=== PATIENT | female | born 1950 | race Caucasian/White ===

== ENCOUNTER 2016-11-02 14:07 | Emergency (ER) | payer OTHER ==
--- NOTE | 2016-11-02 14:13 | PDOC ---
Rapid Medical Evaluation Chief Complaint: Pain Time Seen by Provider: 11/02/16 14:10 Medical Evaluation: Allergies Allergy/AdvReac Type Severity Reaction Status Date / Time No Known Allergies Allergy Verified 10/18/13 15:00 11/02/16 14:10 66 yo F c/o constipation x4d. Pt feels the sensation of BM with lower abd discomfort but has been unsuccessful. +h/o constipation Neg n/v/f/c H/O diverticulitis. Had colonoscopy this year; wnl
[2016-11-02 14:14] VITALS: BP 132/71; PULSE 91; TEMP 98.2; BMI 30.1
--- NOTE | 2016-11-02 14:34 | PDOC ---
History of Present Illness - General Chief Complaint: Pain Stated Complaint: ABD PAIN Time Seen by Provider: 11/02/16 14:10 History Source: Patient Exam Limitations: No Limitations - History of Present Illness Initial Comments: CHIEF COMPLAINT: 66 y/o afebrile female with PMH constipation and diverticulitis c/o constipation and lower abd pain. HISTORY OF PRESENT ILLNESS: The patient states that she has had very small bowel movements over the past 2 days and lower abdominal pain for the past 24 hours. She took miralax last night with little relief. She denies f/c, n/v/d, CP, SOB, back pain, hematuria, dysuria. Vital signs on arrival are within normal limits. REVIEW OF SYSTEMS: GENERAL/CONSTITUTIONAL: No fever/chills. No weakness. No weight change. HEAD, EYES, EARS, NOSE AND THROAT: No change in vision. No ear pain or discharge. No sore throat. CARDIOVASCULAR: No chest pain or shortness of breath. RESPIRATORY: No cough, wheezing, or hemoptysis. GASTROINTESTINAL: +abd pain and constipation. No nausea, vomiting, diarrhea. GENITOURINARY: No dysuria, frequency, or change in urination. MUSCULOSKELETAL: No joint or muscle swelling or pain. No neck or back pain. SKIN: No rash or easy bruising. NEUROLOGIC: No headache, vertigo, loss of consciousness, or loss of sensation. PHYSICAL EXAM: GENERAL: The patient is awake, alert, and fully oriented, in no acute distress. She is well appearing and ambulatory. HEAD: Normal with no signs of trauma. ENT: Pupils equal, round and reactive to light, extraocular movements intact, sclera anicteric, conjunctiva clear. Neck supple. LUNGS: Clear to auscultation bilaterally. Normal excursion. No respiratory distress or use of accessory muscles. CV: RRR, S1/S2, no MRG. Cap refill < 2 sec. ABDOMEN: Soft, non-distended, TTP of suprapubic and LLQ. No rebound, guarding or rigidity. EXTREMITIES: Normal range of motion, no edema. NEUROLOGICAL: Normal speech, normal gait. CN II-XII grossly intact. PSYCH: Normal mood, normal affect. SKIN: Warm, dry, normal turgor, no rashes or lesions noted. Past History - Past Medical History Allergies/Adverse Reactions: Allergies Allergy/AdvReac Type Severity Reaction Status Date / Time No Known Allergies Allergy Verified 10/18/13 15:00 Home Medications: Ambulatory Orders Polyethylene Glycol 3350 [Gavilax] 17 gm PO ASDIR 11/02/16 Asthma: Yes GI Disorders: Yes (HX of diverticulitis) Hypercholesterolemia: Yes - Psycho/Social/Smoking Cessation Hx Anxiety: No Suicidal Ideation: No Smoking Status: No Smoking History: Never smoked Have you smoked in the past 12 months: No Number of Cigarettes Smoked Daily: 0 Information on smoking cessation initiated: No Hx Alcohol Use: No Drug/Substance Use Hx: No Substance Use Type: None *Physical Exam - Vital Signs Last Vital Signs Temp Pulse Resp BP Pulse Ox 98.2 F 91 H 17 132/71 97 11/02/16 14:11 11/02/16 14:11 11/02/16 14:11 11/02/16 14:11 11/02/16 14:11 Medical Decision Making - Medical Decision Making A/P: 66 y/o afebrile female with constipation and lower abdominal pain for the past 2 days. Plan is as follows: 1. flat and upright abd xray 2. UA/culture 3. Mag citrate Flat and upright abd xray IMPRESSION: No evidence of pneumoperitoneum. No evidence of distended loops of small bowel or colon. Few small nonspecific air-fluid levels are seen on the erect view. The patient was able to have a normal BM in the ER about 1 hour after having Mag Citrate. She states she feels better and wants to go home. Suggested she drink plenty of fluids, take her constipation medication if needed and f/u with her PCP as soon as possible. instructed her to return to the ER with any worsening or concerning symptoms. The patient verbalizes understanding of all instructions, has no further questions and is awaiting discharge. *DC/Admit/Observation/Transfer Diagnosis at time of Disposition: Constipation Qualifiers: Constipation type: unspecified constipation type Qualified Code(s): K59.00 - Constipation, unspecified - Discharge Dispostion Disposition: HOME Condition at time of disposition: Improved - Referrals Referrals: Rose Marie Blum [Primary Care Provider] - Call tomorrow - Patient Instructions Printed Discharge Instructions: DI for Constipation, Increased Dietary Fiber May Improve Constipation Conditions With Pelvic Sunny Additional Instructions: Discharge Instructions: -Take your constipation medication if needed -Drink plenty of fluids -Follow up with your doctor as soon as possible -return to the ER with any worsening or concerning symptoms
[2016-11-02] MEDS ORDERED: MAGNESIUM CITRATE 300 ML BOTTLE PO ONE (14:36)
[2016-11-02] MEDS ORDERED: MAGNESIUM CITRATE 300 ML BOTTLE ONE ×2 (14:45→14:56)
[2016-11-02 15:33] LABS: URINE APPEARANCE CLEAR; URINE BILIRUBIN NEGATIVE (NEGATIVE); URINE COLOR AMBER; URINE GLUCOSE (UA) NEGATIVE (NEGATIVE); URINE KETONE NEGATIVE (NEGATIVE); URINE NITRITE NEGATIVE (NEGATIVE); URINE UROBILINOGEN NEGATIVE E.U./dl (0.2-1.0)
[2016-11-02 15:36] LABS: URINE BLOOD 2+ (NEGATIVE); URINE LEUK ESTERASE TRACE (NEGATIVE); URINE PROTEIN 1+ (NEGATIVE)
[2016-11-02 15:38] LABS: URINE MUCUS MANY; URINE RBC 17 /hpf (0-3); URINE WBC 6 /hpf (3-5)
== END 2016-11-02 15:53 | disposition home or self-care (01) ==
LOC: JERFT 14:07
DX: K59.00 Constipation, unspecified (principal); K57.90 Diverticulosis of intestine, part unspecified, without perforation or abscess without bleeding; J45.909 Unspecified asthma, uncomplicated; E78.00 Pure hypercholesterolemia, unspecified
CPT/HCPCS: 74020-TC; 81003; 81015; 87086; 99281-25

== ENCOUNTER 2023-06-05 03:46 | Day surgery (SDC) | payer OTHER ==
[2023-06-02 09:36] VITALS: BMI 28.0
[2023-06-05] MEDS ORDERED: MIDAZOLAM HCL 2 MG/2 ML SINGLE DOSE VIAL ONE (08:15)
[2023-06-05 09:16] VITALS: RESP 18
[2023-06-05 10:24] VITALS: BP 132/61; PULSE 70; TEMP 97.5
== END 2023-06-05 10:20 | disposition home or self-care (01) ==
LOC: JASU-SURG 03:46
PROVIDERS: ATTEND Urology
PROC: 0TF3XZZ Fragmentation in Right Kidney Pelvis, External Approach (ICD-10-PCS; principal; 2023-06-05 08:30)
DX: N20.0 Calculus of kidney (principal)

== ENCOUNTER 2024-02-09 22:45 | Observation (INO) | payer OTHER ==
[2024-02-09 22:53] VITALS: BMI 21.8
[2024-02-09 23:28] LABS: EOS % 3.5 % (0-4.5); HEMATOCRIT 36.1 % (32.4-45.2); HEMOGLOBIN 12.2 GM/dL (10.7-15.3); LYMPH % 46.3 % (8-40); MCH 30.9 pg (25.7-33.7); MCHC 33.8 g/dl (32.0-36.0); MEAN CELL VOLUME 91.6 fl (80-96); MEAN PLT VOLUME 7.1 fl (7.5-11.1); MONO % 7.8 % (3.8-10.2); NEUT % 41.4 % (42.8-82.8); PLATELET COUNT 232 10^3/uL (134-434); RBC 3.94 M/mm3 (3.60-5.2); WHITE BLOOD COUNT 4.4 K/mm3 (4.0-10.0)
[2024-02-09 23:40] LABS: INR 1.02 (0.83-1.09); PROTHROMBIN TIME (PATIENT) 11.5 SEC (9.7-13.0)
[2024-02-09 23:44] LABS: POTASSIUM 3.9 mmol/L (3.5-5.1)
[2024-02-09 23:46] LABS: CALCIUM 8.8 mg/dL (8.5-10.1)
[2024-02-09 23:47] LABS: ALBUMIN 3.5 g/dl (3.4-5.0); BLOOD UREA NITROGEN 13.2 mg/dL (7-18); MAGNESIUM 2.1 mg/dL (1.8-2.4)
[2024-02-09 23:50] LABS: CREATININE 0.7 mg/dL (0.55-1.3)
[2024-02-09 23:52] LABS: BILIRUBIN,TOTAL 0.4 mg/dL (0.2-1); TOT PROT 6.5 g/dl (6.4-8.2)
[2024-02-10] MEDS ORDERED: ACETAMINOPHEN INJECTION 100 ML IVPB ONE (00:05)
[2024-02-10] MEDS ORDERED: FAMOTIDINE 20 MG/50 ML IVPB 20 MG/50 ML MG IVPB ONE (00:06)
[2024-02-10] MEDS: FAMOTIDINE 20 MG/50 ML IVPB 20 MG/50 ML MG IVPB ONE (00:11)
[2024-02-10] MEDS: ACETAMINOPHEN 1000 MG/100 ML BAG IVPB ONE (00:11)
[2024-02-10] MEDS ORDERED: ASPIRIN 325 MG ENTERIC COATED TABLET (FP) ONE (01:49)
[2024-02-10] MEDS: ASPIRIN 325 MG ENTERIC COATED TABLET (FP) PO ONE (01:51)
[2024-02-10] MEDS ORDERED: ALBUTEROL SO4 HFA INHALER IH PRN (04:35)
[2024-02-10 08:40] LABS: HEMATOCRIT 35.8 % (32.4-45.2); HEMOGLOBIN 12.3 GM/dL (10.7-15.3); MCH 31.4 pg (25.7-33.7); MCHC 34.4 g/dl (32.0-36.0); MEAN CELL VOLUME 91.2 fl (80-96); MEAN PLT VOLUME 7.7 fl (7.5-11.1); PLATELET COUNT 224 10^3/uL (134-434); RBC 3.93 M/mm3 (3.60-5.2); RDW 13.1 % (11.6-15.6)
[2024-02-10 08:58] LABS: POTASSIUM 4.1 mmol/L (3.5-5.1)
[2024-02-10 09:14] LABS: CALCIUM 9.2 mg/dL (8.5-10.1)
[2024-02-10 09:15] LABS: BLOOD UREA NITROGEN 9.7 mg/dL (7-18); MAGNESIUM 2.2 mg/dL (1.8-2.4)
[2024-02-10 09:17] LABS: PHOSPHOROUS 3.8 mg/dL (2.5-4.9)
[2024-02-10 09:18] LABS: CREATININE 0.6 mg/dL (0.55-1.3)
[2024-02-10] MEDS: LIDOCAINE 5% TOPICAL PATCH TP SCH (09:46)
[2024-02-10] MEDS: BUDESONIDE/FORMOTEROL FUMARATE 80-4.5 MCG (10.3 GM INHALER) IH SCH (09:46)
[2024-02-10] MEDS: ENOXAPARIN NA (PORCINE) 40 MG/0.4 ML DISP.SYRIN SQ SCH (09:46)
[2024-02-10] MEDS: ASPIRIN COATED 81 MG TABLET.EC PO SCH (09:47)
[2024-02-10] MEDS: PANTOPRAZOLE 20 MG TABLET PO SCH (09:47)
[2024-02-10] MEDS: LIDOCAINE PATCH REMOVAL MC SCH (20:20)
[2024-02-10] MEDS: MONTELUKAST NA 10 MG TABLET PO SCH (21:41)
[2024-02-10] MEDS: ROSUVASTATIN CA 20 MG TABLET PO SCH (21:41)
[2024-02-11 07:58] LABS: POTASSIUM 4.1 mmol/L (3.5-5.1)
[2024-02-11 08:05] LABS: BLOOD UREA NITROGEN 12.3 mg/dL (7-18); CALCIUM 9.1 mg/dL (8.5-10.1)
[2024-02-11 08:09] LABS: CREATININE 0.6 mg/dL (0.55-1.3)
[2024-02-11 08:32] LABS: HEMATOCRIT 35.8 % (32.4-45.2); HEMOGLOBIN 12.4 GM/dL (10.7-15.3); MCH 31.5 pg (25.7-33.7); MCHC 34.5 g/dl (32.0-36.0); MEAN CELL VOLUME 91.3 fl (80-96); MEAN PLT VOLUME 7.8 fl (7.5-11.1); PLATELET COUNT 240 10^3/uL (134-434); RBC 3.92 M/mm3 (3.60-5.2); RDW 13.1 % (11.6-15.6); WHITE BLOOD COUNT 4.3 K/mm3 (4.0-10.0)
[2024-02-11 19:15] VITALS: RESP 18
[2024-02-12 09:01] LABS: HEMATOCRIT 39.4 % (32.4-45.2); HEMOGLOBIN 13.5 GM/dL (10.7-15.3); MCH 31.6 pg (25.7-33.7); MCHC 34.3 g/dl (32.0-36.0); MEAN CELL VOLUME 92.3 fl (80-96); MEAN PLT VOLUME 7.7 fl (7.5-11.1); PLATELET COUNT 270 10^3/uL (134-434); RBC 4.27 M/mm3 (3.60-5.2); RDW 13.1 % (11.6-15.6); WHITE BLOOD COUNT 4.8 K/mm3 (4.0-10.0)
[2024-02-12 09:20] LABS: POTASSIUM 4.3 mmol/L (3.5-5.1)
[2024-02-12 09:24] LABS: BLOOD UREA NITROGEN 11.7 mg/dL (7-18); CALCIUM 9.3 mg/dL (8.5-10.1)
[2024-02-12 09:27] LABS: CREATININE 0.6 mg/dL (0.55-1.3)
[2024-02-12] MEDS ORDERED: REGADENOSON 0.4 MG/5 ML PRE-FILLED SYRINGE IVPUSH ONE (12:41)
[2024-02-12] MEDS: REGADENOSON 0.4 MG/5 ML PRE-FILLED SYRINGE IVPUSH ONE (12:48)
[2024-02-12 15:07] VITALS: BP 146/73; PULSE 60
[2024-02-12 17:43] VITALS: TEMP 98.2
== END 2024-02-12 16:37 | disposition home or self-care (01) ==
LOC: JER 22:45 → JERBED 02-10 02:04 → J4S 02-10 04:28
PROVIDERS: ADMIT Internal Medicine; ATTEND Internal Medicine
PROC: 3E033NZ Introduction of Analgesics, Hypnotics, Sedatives into Peripheral Vein, Percutaneous Approach (ICD-10-PCS; principal; 2024-02-10)
PROC: 3E033GC Introduction of Other Therapeutic Substance into Peripheral Vein, Percutaneous Approach (ICD-10-PCS; 2024-02-10)
DX: M94.0 Chondrocostal junction syndrome [Tietze] (principal); R07.89 Other chest pain; M25.512 Pain in left shoulder; G47.30 Sleep apnea, unspecified; K57.90 Diverticulosis of intestine, part unspecified, without perforation or abscess without bleeding; J45.909 Unspecified asthma, uncomplicated; I10 Essential (primary) hypertension; E78.5 Hyperlipidemia, unspecified; N20.0 Calculus of kidney; Z91.199 Patient's noncompliance with other medical treatment and regimen due to unspecified reason
CPT/HCPCS: 36415; 71045-TC-FY; 78452-TC; 80048; 80053; 80061; 83036; 83735; 84100; 84484; 85025; 85027; 85610; 86850; 86900; 86901; 93005; 93010; 93017; 93306-TC; 96365; 96375; 99285-25; A9502; G0378; J0131; J2785

== ENCOUNTER 2024-06-12 09:29 | Emergency (ER) | payer OTHER ==
[2024-06-12 09:52] VITALS: RESP 18; TEMP 98.1; BMI 25.0
[2024-06-12 10:20] LABS: EPI CELLS 8 /uL (0-25.1); HYALINE CASTS 0 /uL (0-3.1); URINE APPEARANCE CLEAR; URINE BACTERIA 13 /uL (0-1359); URINE BILIRUBIN NEGATIVE (NEGATIVE); URINE COLOR YELLOW; URINE GLUCOSE (UA) NEGATIVE (NEGATIVE); URINE KETONE NEGATIVE (NEGATIVE); URINE LEUK ESTERASE NEGATIVE (NEGATIVE); URINE NITRITE NEGATIVE (NEGATIVE); URINE PROTEIN NEGATIVE (NEGATIVE); URINE RBC 147 /uL (0-23.9); URINE UROBILINOGEN 0.2 mg/dL (0.2-1.0); URINE WBC 8 /uL (0-25.8)
[2024-06-12] MEDS ORDERED: ACETAMINOPHEN INJECTION 100 ML ONE (10:24)
[2024-06-12] MEDS: ACETAMINOPHEN 1000 MG/100 ML BAG IVPB ONE (10:30)
[2024-06-12 10:50] LABS: INR 0.95 (0.83-1.09); PROTHROMBIN TIME (PATIENT) 10.7 SEC (9.7-13.0)
[2024-06-12 10:51] LABS: ACTIVATED PTT 18.3 SECONDS (25.2-36.5)
[2024-06-12 11:02] LABS: CALCIUM 9.4 mg/dL (8.5-10.1)
[2024-06-12 11:03] LABS: ALBUMIN 3.7 g/dl (3.4-5.0); BLOOD UREA NITROGEN 9.5 mg/dL (7-18); MAGNESIUM 2.6 mg/dL (1.8-2.4)
[2024-06-12 11:06] LABS: CREATININE 0.6 mg/dL (0.55-1.3)
[2024-06-12 11:07] LABS: TOT PROT 7.1 g/dl (6.4-8.2)
[2024-06-12 11:31] LABS: BASO % 0.8 % (0-2.0); EOS % 0.8 % (0-4.5); HEMATOCRIT 36.9 % (32.4-45.2); HEMOGLOBIN 12.4 GM/dL (10.7-15.3); LYMPH % 17.1 % (8-40); MCHC 33.6 g/dl (32.0-36.0); MEAN CELL VOLUME 92.3 fl (80-96); MONO % 5.7 % (3.8-10.2); NEUT % 75.6 % (42.8-82.8); PLATELET COUNT 240 10^3/uL (134-434); RDW 12.8 % (11.6-15.6); WHITE BLOOD COUNT 8.6 K/mm3 (4.0-10.0)
[2024-06-12] MEDS ORDERED: AMOX TR/POT CLAV 875MG/125MG TABLETS (FP) ONE (12:34)
[2024-06-12] MEDS ORDERED: IBUPROFEN 400 MG TABLET (FP) PO ONE (12:35)
[2024-06-12] MEDS: AMOX TR/POT CLAV 875MG/125MG TABLETS (FP) PO ONE (12:42)
[2024-06-12] MEDS: IBUPROFEN 600 MG TABLET (FP) PO ONE (12:42)
[2024-06-12 12:45] VITALS: BP 113/59; PULSE 60
== END 2024-06-12 12:58 | disposition home or self-care (01) ==
LOC: JER 09:29
PROC: 3E033NZ Introduction of Analgesics, Hypnotics, Sedatives into Peripheral Vein, Percutaneous Approach (ICD-10-PCS; principal; 2024-06-12)
DX: R10.30 Lower abdominal pain, unspecified (principal); R31.9 Hematuria, unspecified; K57.92 Diverticulitis of intestine, part unspecified, without perforation or abscess without bleeding
CPT/HCPCS: 36415; 74176-TC; 80053; 81003; 83605; 83690; 83735; 85025; 85610; 85730; 87086; 93005; 93010; 99285-25; J0131